=== PATIENT | female | born 1940 | race Caucasian/White ===

== ENCOUNTER 2024-07-21 08:11 | Inpatient (IN) | payer MEDICARE, OTHER, SELFPAY ==
[2024-07-20 21:45] VITALS: BP 106/70; BMI 16.4
[2024-07-20 21:58] VITALS: BP 83/58
[2024-07-20 22:00] VITALS: BP 85/57
--- NOTE | 2024-07-20 22:08 | ED.GENMED ---
History of Present Illness
General
Chief Complaint: Fever
Source: family and ambulance crew
Exam Limitations: clinical condition, dementia and other (Advanced directive)
Time Seen by Provider: 07/20/24 22:08
Nursing documentation reviewed up to this point in time: agreed with
History of Present Illness
History of Present Illness:
Pleasantly demented 84-year-old female presents to the emergency department after near syncopal event. Family found her in the shower after loss of bladder and bowel. Family called 911. EMS found her hypotensive, and hypoxic. On their arrival
pulse ox was found to be in the 70s.
Patient arrives to the emergency department with family and an advanced directive. They note that patient was 111 pounds several weeks ago and now is down in the 80s. Family requests that no antibiotics be given. Patient's advance directive states
that she is to be comfort measures only. I discussed the implications of this with family and they are in agreement. They did agree to oxygen, pain medications and gentle hydration. Labs were sent prior to these advanced directives.
Past History
Past History
ED Past Medical History: CAD, GERD, PR and Other (Patient also has a history of pneumonia, irritable bowel hiatal hernia scoliosis anemia cataracts. )
ED Past Surgical History: Cholecystectomy and Other (Patient has had angioplasty in 25 years ago and angiogram in 1999 he )
Social History
Tobacco: Former smoker
Personal:
Living: with family
Employment: Retired
Review of Systems
Review of Systems
Unable to obtain full review of systems at this time due to: dementia
Other source history: family and ambulance crew
All Other Systems: ROS reviewed and negative except as documented in HPI and ROS
Constitutional: Reports no symptoms
EENT: Reports no symptoms
Respiratory: Reports no symptoms
Cardiac: Reports syncope
ABD/GI: Reports no symptoms
: Reports no symptoms
Musculoskeletal: Reports no symptoms
Skin: Reports no symptoms
Neurological: Reports no symptoms
Endocrine: Reports no symptoms
Hematologic/Lymphatic: Reports no symptoms
Psychiatric: Reports no symptoms
Phy Exam
General Physical Exam
General Presentation: no apparent distress
General age: appears older than age
General Skin: warm and dry
Eye Exam
Eye Exam: other (Unable to evaluate)
Cardiovascular Exam
Cardiovascular Exam: regular rate/rhythm and no edema
Pulmonary Exam
Pulmonary Exam: no respiratory distress (On 2 L)
Neurological Exam
Neurological Exam: other (Unable to evaluate)
Skin Exam
Skin Exam: normal color and warm/dry
Psychiatric Exam
Psychiatric Exam: labile
Sepsis
Sepsis Screening
Sepsis Assessment: Septic Shock
Sepsis Screening: Lactate >2mmol/L (comfort measures)
Sepsis Screen
Sepsis Screen: Septic Shock
Date: 07/22/24
Time: 22:03
Course
Orders/Labs/Results
Orders:
Orders
07/20/24 21:51
Electrocardiogram (*1) Urgent
Reason for Study: Shortness of Breath
07/20/24 21:52
EKG- Treatment ONCE
07/20/24 22:05
Complete Blood Count/With Diff Urgent
Comprehensive Metabolic Panel Urgent
Lactic Acid Q4H
Comment: ON ICE, CANCEL 2ND ORDER IF FIRST LACTIC ACID LEVEL <2
07/20/24 22:34
0.9% Sodium Chloride 1000 ml [Nss] 1,000 ml IV 125 mls/hr
07/20/24 22:49
Admit/Transfer Patient As Directed
Co-Sign Provider:
Level of Care: Observation services
Assign to:: Medical/Surgical
Physician / Group: miguel
Diagnosis: sepsis
PRN Pain Medication Management As Directed
May give lesser potent ordered pain med per pt: Yes
preference::
Protocol:: Medication orders for pain may be administered in a
manner that supports deferring to patient preference
when the pt is:
- Requesting an ordered lesser potent pain medication.
Least to most potent pain medications are defined
as: acetaminophen < NSAID < tramadol < opioids
(morphine, oxycodone, hydromorphone).
- Requesting a lesser dose of the same medication IF
ORDERED.
- Requesting a less intrusive route of administration
if both routes are prescribed by the provider (PO <
IV).
07/20/24 22:50
Code Status As Directed
Resuscitation Status: Do not resuscitate
Reached after discussion with pt or family/Healthcare POA: Yes
07/20/24 22:52
DNR Bracelet Application ONCE
07/20/24 22:56
Morphine Sulfate 1 mg IV Q1HPRN PRN
07/21/24 01:08
Glycopyrrolate [Robinul] 0.2 mg IV Q4HPRN PRN
Ketorolac [Toradol] 15 mg IV Q6HPRN PRN
Ondansetron Injectable [Zofran] 4 mg IV Q6HPRN PRN
07/21/24 01:08
VTE Contraindication Routine
VTE Mechanical Device Contraindication: Medical Contraindication
Pharmocologic Contraindication: Medical Contraindication
Activity As Directed
Activity Level: As Tolerated
Comfort Measures As Directed
Comment: Pain and Dyspnea assessment every 4 hours
End of Life Symptom Assessment Q4
Vital Signs As Directed
Frequency: Per unit guidelines
07/21/24 01:24
Pt Screening Request from Charley Routine
Speech Screening from Charley Routine
07/21/24 08:08
Case Management Consult ONCE
Case Management Consult: Hospice
Hospice: Evaluation and treat
Abnormal Lab Results
07/20/24
22:05
WBC 22.2 H 10^3/uL
(4.8-10.8)
RDW 15.3 H %
(11.5-14.5)
MPV 12.1 H fL
(7.4-10.4)
Abs Immat Gran (auto) 0.4 H 10^3/uL
(0-0.05)
Absolute Neuts (auto) 18.3 H 10^3/uL
(1.4-6.5)
Absolute Monos (auto) 1.3 H 10^3/uL
(0.1-0.6)
Immature Gran % 1.8 H %
(0-0.5)
Neutrophils % 82.5 H %
(42.2-75.2)
Lymphocytes % 9.3 L %
(20.5-51.1)
Sodium 158 H mmol/L
(135-145)
Chloride 122 H mmol/L
(98-107)
Carbon Dioxide 12 L* mmol/L
(22-30)
BUN 81 H mg/dl
(7-17)
Creatinine 3.3 H mg/dL
(0.6-1.0)
Glucose 189 H mg/dl
(70-99)
Lactic Acid 4.9 H* mmol/L
(0.7-2.0)
AST 113 H U/L
(14-36)
ALT 43 H U/L
(0-35)
07/20/24 22:05
07/20/24 22:05
Vital Signs
Initial and Last Documented VS:
Initial Vital Signs
Temp Pulse Resp BP Pulse Ox
101.2 F H 85 21 106/70 97
07/20/24 21:45 07/20/24 21:45 07/20/24 21:45 07/20/24 21:45 07/20/24 21:45
Last Documented Vital Signs
Temp Pulse Resp BP Pulse Ox
97.6 F 89 20 105/71 92
07/21/24 07:05 07/21/24 07:05 07/21/24 07:05 07/21/24 07:05 07/21/24 07:05
*Critical Care Note
Total Time (30-74mins, 75-104mins- exclusive of procedures): Not Applicable
Update Note
Update Note:
Critical lab values noted. Family, acting on patient's requests and advanced directive did not want anything heroic done
ED Attending Note
-
Portions of this chart may have been created with voice recognition software.� Occasional wrong word or��sound alike� substitutions may have occurred due to the inherent limitations of voice recognition software.
Discharge Plan
Departure
Patient Disposition: Admit
Date of Disposition: 07/20/24
Time of Disposition: :24
Admit to: Med/Surg
Presentation/result/management discussed w/ accepting MD/DO: Hospitalist
Discharge Problem:
Adult failure to thrive, Comfort measures only status
Interventions
Interventions:
*Risk Screen - Suicide Last Done: 07/21/24 01:11
*General Assessment Last Done: 07/21/24 00:33
*Neglect/Abuse Screening Last Done: 07/21/24 00:33
ED- Fall Risk Assessment Last Done: 07/20/24 23:23
*ED COVID-19 Vaccine History Last Done: 07/21/24 01:11
*Nursing Disposition Last Done: 07/21/24 00:33
ED- Neurological Assessment Last Done: 07/20/24 23:23
ED-Skin Assessment Last Done: 07/20/24 23:23
Discharge Date and Time
Discharge Date/Time: 07/21/24 00:36
[2024-07-20 22:13] VITALS: BP 93/57
[2024-07-20 22:14] LABS: % Basophils 0.4 % (0-2); % Immature Granulocytes 1.8 % (0-0.5); % Lymphocytes 9.3 % (20.5-51.1); % Neutrophils 82.5 % (42.2-75.2); Absolute Basophils 0.1 10^3/uL (0-0.2); Absolute Immature Granulocytes 0.4 10^3/uL (0-0.05); Absolute Lymphocytes 2.1 10^3/uL (1.2-3.4); Absolute Monocytes 1.3 10^3/uL (0.1-0.6); Absolute Neutrophils 18.3 10^3/uL (1.4-6.5); Hematocrit 45.8 % (37.0-47.0); Hemoglobin 15.1 g/dL (12.0-16.0); Mean Corpuscular Hgb 29.9 pg (27.0-31.0); Mean Corpuscular Volume 90.7 fL (81.0-99.0); Mean Platelet Volume 12.1 fL (7.4-10.4); Nucleated Red Blood Cells % 0 %; Platelet Count 266 10^3/uL (130-400); Red Blood Cell Count 5.05 10^6/uL (4.20-5.40); Red Cell Dist. Width 15.3 % (11.5-14.5); White Blood Cell Count 22.2 10^3/uL (4.8-10.8)
[2024-07-20 22:33] LABS: Albumin 4.2 g/dl (3.5-5.0); Alkaline Phosphatase 64 U/L (38-126); Blood Urea Nitrogen 81 mg/dl (7-17); Calcium 9.6 mg/dl (8.4-10.2); Carbon Dioxide 12 mmol/L (22-30); Chloride 122 mmol/L (98-107); Estimated Creatinine Clearance 8 ml/min; Glucose 189 mg/dl (70-99); Potassium 4.7 mmol/L (3.5-5.1); Sodium 158 mmol/L (135-145); Total Bilirubin 0.9 mg/dl (0.2-1.3); Total Protein 6.6 g/dl (6.3-8.2); eGFR 13.34
[2024-07-20 22:34] LABS: Lactic Acid 4.9 mmol/L (0.7-2.0)
[2024-07-20 22:52] LABS: ALT (SGPT) 43 U/L (0-35); AST (SGOT) 113 U/L (14-36)
[2024-07-20 23:00] VITALS: BP 64/46
--- NOTE | 2024-07-20 23:03 | HPS.HSE ---
Family Physician
-
Family Physician: Fausto Downey [facility]
Chief Complaint
-
syncope
History of Present Illness
84-year-old female past medical history of dementia, CAD, GERD, irritable bowel syndrome, hiatal hernia, scoliosis, anemia, presenting to the hospital after near syncopal event. Family found her in the shower after loss of control of bladder and
bowel. Family called 911. EMS found her hypotensive and hypoxic. On arrival pulse ox was 70s.
Patient arrives to the emergency room with family in advance directive. They noted patient was 111 pounds several weeks ago and is now in the 80s. Family requested no antibiotics be given. Patient's advance directive states that she be comfort
measures only. They are agreeable to oxygen, pain medication and gentle hydration.
Medical History
Past Medical History
Past Medical History: Reports Other (dementia, CAD, GERD, irritable bowel syndrome, hiatal hernia, scoliosis, anemia)
Past Surgical History: Reports None
Social History
Tobacco: Non-smoker
Alcohol: None
Drug: None
Family History
Family History: Not pertinent
Allergies / Home Medications
Allergies reflects when Allergies were last updated in [facility].
Home Medications with original date entered in [facility]
Allergy/Medication List:
Allergies
Allergy/AdvReac Type Severity Reaction Status Date / Time
aspirin [Aspirin] Allergy BLEEDING Verified 04/26/20 17:48
codeine [Codeine] Allergy DISORIENTAT Verified 04/26/20 17:48
ION
lisinopril [Lisinopril] Allergy COUGH Verified 04/26/20 17:48
nifedipine [From Procardia] Allergy SKIN Verified 04/26/20 17:48
ERYTHEMA
Home Medications
amlodipine 10 mg tablet 10 mg PO DAILY 03/22/10
carvedilol 3.125 mg tablet 3.125 mg PO TID 03/22/10
clopidogrel 75 mg tablet 75 mg PO DAILY 03/22/10
ergocalciferol (vitamin D2) 1,250 mcg (50,000 unit) capsule (Vitamin D2) 50,000 unit PO .Sunday03/22/10
esomeprazole magnesium 40 mg capsule,delayed release (Nexium) 40 mg PO DAILY 03/22/10
furosemide 20 mg tablet 20 mg PO DAILY 03/22/10
nitroglycerin 0.4 mg/hr transdermal 24 hour patch 0.4 mg transdermal DAILY 03/22/10
rosuvastatin 5 mg tablet 5 mg PO 3XW 03/22/10
valsartan 320 mg tablet (Diovan) 320 mg PO HS 03/22/10
Review of Systems
-
History Source: Family
A 12 point ROS was completed and negative except as noted: No
Physical Exam
Vital Signs
Vital Signs
Temp Pulse Resp BP Pulse Ox
101.2 F H 85 21 106/70 97
07/20/24 21:45 07/20/24 21:45 07/20/24 21:45 07/20/24 21:45 07/20/24 21:45
Physical Exam
General: Well Developed, Well Nourished and No Apparent Distress
HEENT: NormoCephalic, Moist mucous membranes and Atraumatic
Respiratory: Clear
Cardiac: S1/S2 and Regular Rhythm; No Murmur or Rub
GI: Soft, Non Tender, Non Distended and Normal Bowel Sounds; No Organomegaly
Rectal: Deferred by Provider
Musculoskeletal: No Clubbing, No Cyanosis and No Edema
Skin: No Rash
Neuro: Nonfocal/grossly intact
Laboratory Results
-
07/20/24 22:05
07/20/24 22:05
Laboratory Results
Lactic Acid 4.9 mmol/L (0.7-2.0) H* 07/20/24 22:05
Total Bilirubin 0.9 mg/dl (0.2-1.3) 07/20/24 22:05
AST 113 U/L (14-36) H 07/20/24 22:05
ALT 43 U/L (0-35) H 07/20/24 22:05
Alkaline Phosphatase 64 U/L (38-126) 07/20/24 22:05
Data Reviewed
-
Lab Data: Labs Reviewed by me
Old Records: Reviewed
Impression/Plan
-
IMPRESSION:
PLAN:
# Sepsis (fever, leukocytosis) unknown source
# Anion gap metabolic acidosis
-Comfort measures only except for IV fluids, oxygen and morphine
-Morphine every hour
-Toradol for fever
-Glycopyrrolate, Zofran
-Family does not want antibiotics
-Hold all oral medications
# Hypernatremia secondary to hypovolemia
-IV fluids
# HELEN on CKD
-IV fluids
-Hold valsartan
Comfort measures
DVT prophylaxis�none
N.p.o.
[2024-07-20] MEDS: NSS 1000 IV (23:09)
[2024-07-21 00:47] VITALS: BP 129/70
[2024-07-21 01:11] VITALS: BMI 14.6
[2024-07-21] MEDS: MORPHINE SULFATE 1 MG IV ×5 (01:39→11:20)
[2024-07-21 07:05] VITALS: BP 105/71
[2024-07-21] MEDS: ATIVAN 1 MG IV ×2 (09:20→11:20)
[2024-07-21] MEDS: NSS (PRESERVATIVE FREE) 0.5 ML IV (09:21)
--- NOTE | 2024-07-21 09:55 | CM ---
Case management consult complete for hospice. IA completed.
tt from I[facility] Valdes stating patient is now inpatient.
Reviewed IMM with daughter.
Called daughter Brea & discussed hospice agency options. Would like DH.
tt Rach Agarwal patient relations liaison.
Dx: Sepsis
PMH: dementia, anemia, IBS
Patient was living with daughter for over a year in a 2 story home, 0 steps to enter.
DME in home: wheelchair, walker, cane, shower chair, grab bars
Daughter states ambulating without using assistive device, as they would standby & hold on to her.
PCP: Fausto Green
Pharmacy: [address], [place]
PLAN: comfort measures, hospice to eval
--- NOTE | 2024-07-21 10:13 | HOSPNOTE ---
Addendum entered by Jazmin Agarwal RN 07/21/24 11:49:
Spoke with family and assessed patient. Patient is actively dying and was medicated with morphine and ativan. Per family request remove the patient off 15L non rebreather and allow the patient to be comfortable and pass peacefully. Comfort box was
ordered for family. Will continue to follow for support.
Original Note:
Referral received will speak with daughter. More information to follow.
--- NOTE | 2024-07-21 11:51 | W.PN.HOSP.TC ---
Today's Communication/Plan
-
comfort measures
morphine per the protocol
Assessment / Plan
Assessment / Plan
#Failure to thrive likely multifactorial
# SIRS
# Anion gap metabolic acidosis
-Comfort measures only. Consider weaning off o2 and IVF later.
-Patient with severely elevated creatinine and was switched to Dilaudid every hour as needed with progression to infusion if needed.
-Tylenol rectal prn for fever
-Glycopyrrolate, Zofran
-Family does not want antibiotics
-Hold all oral medications
-Case management consulted for hospice
# Hypernatremia secondary to hypovolemia
-IV fluids
# HELEN on CKD
# Severe metabolic acidosis
# Severe lactic acidosis
-IV fluids
# Mild transaminitis
Comfort measures
DVT prophylaxis�none
Discussed with patient's son at bedside in detail
Anticipated Discharge: > 48 hours
Subjective/Interval History
-
Date of Service: July 21, 2024
on NRB
family at bedside
mailing jogger at bedside
on comfort measures
Objective Data
-
Vital Signs:
Vital Signs
Temp Pulse Resp BP Pulse Ox
97.6 F 89 20 105/71 92
07/21/24 07:05 07/21/24 07:05 07/21/24 07:05 07/21/24 07:05 07/21/24 07:05
Physical Exam
-
General: Appears in Distress, Appears Chronically Ill and Cachectic
HEENT: Normocephalic and Atraumatic
Respiratory: Rhonchi
Cardiac: S1/S2
GI: Nondistended
Psych: Apparent Dementia
Data Reviewed
-
Total Time Spent with Patient (in minutes): 53
[2024-07-21] MEDS: DILAUDID 0.5 MG IV (13:36)
--- NOTE | 2024-07-21 14:33 | PTCARENOTE ---
patient peacefully. no breathing/heartbeat on assessment. family at bedside. SHELBY offered, notified. hospice nurse was made aware
--- NOTE | 2024-07-21 15:00 | W.PN.DEATH ---
Pronouncement of
-
Called to see patient to pronounce.
No spontaneous heart tones or respirations noted.
Patient not responsive to verbal stimuli.
Patient is pronounced .
Time of : 14:26
Date of : 07/21/24
Cause of : Failure to thrive
Hypernatremia
Lactic acidosis
Acute kidney injury on chronic kidney disease
Severe metabolic acidosis
Dementia
Family Notified: Yes
--- NOTE | 2024-07-21 15:11 | W.DCSUMMARY ---
Discharge Summary
Discharge Data
Date of Admission: 07/21/24
Date of Discharge: 07/21/24
-
Pending Results: No
Hospital Course
84 female past medical history of coronary artery disease, dementia, hiatal hernia, CKD who is presenting from home with near syncope via EMS. On admission she was found to have fever with severe leukocytosis and severe acute hypoxic respiratory
failure. Patient was also found to have severe hypernatremia likely secondary to dehydration. Also had a severely elevated creatinine. Also was found to have severe metabolic and lactic acidosis. Patient had advanced directive with stated of
comfort measures only and family stated against aggressive medical management. Family stated okay for IV fluids and oxygenation for overnight. They were wanted to respect patient wishes and want to continue with comfort measures. Patient was
started on morphine as needed. Subsequently hospice was consulted. Morphine was switched to Dilaudid as with severe HELEN on CKD. Patient on comfort measures on 07/21/2024 at 2:26 PM. Expressed my condolences to patient daughter at bedside.
[facility] [employer] was notified. She stated okay to release body to home.
Discharge Plan
-
Patient Disposition:
Date/Time
Date/Time: 07/21/24 14:26
Discharge Date and Time
Discharge Date/Time: 07/21/24 14:53
Print Language: BENGALI
== END 2024-07-21 14:53 | disposition expired | DRG 640 ==
LOC: 2 NORTH 08:11
PROVIDERS: Student in an Organized Health Care Education/Training Program; ADMITTING PHYSICIAN Hospitalist; ATTENDING PHYSICIAN Hospitalist; EMERGENCY PHYSICIAN Student in an Organized Health Care Education/Training Program; FAMILY PHYSICIAN Family Medicine
DX: R62.7 Adult failure to thrive (principal); J96.01 Acute respiratory failure with hypoxia; E87.0 Hyperosmolality and hypernatremia; N17.9 Acute kidney failure, unspecified; R65.10 Systemic inflammatory response syndrome (SIRS) of non-infectious origin without acute organ dysfunction; E87.20 Acidosis, unspecified; E86.0 Dehydration; I25.10 Atherosclerotic heart disease of native coronary artery without angina pectoris; N18.9 Chronic kidney disease, unspecified; F03.90 Unspecified dementia, unspecified severity, without behavioral disturbance, psychotic disturbance, mood disturbance, and anxiety
CPT/HCPCS: 80053; 83605; 85025; 93005; 99285